=== PATIENT | male | born 2000 | race Caucasian/White ===

== ENCOUNTER 2024-11-20 15:18 | Emergency (ER) | payer OTHER ==
[~2024-11-20] VITALS: Ht 180.3 cm; Wt 66.8 kg
--- NOTE | 2024-11-20 16:22 | DVH ---
CLINICAL INDICATION: crush injury TECHNIQUE: 3 radiographic views of the right 2nd digit were obtained. Comparison: None FINDINGS/IMPRESSION: 0.8 mm bony fragment adjacent to the palmar base of the 2nd digit middle phalanx which may represent a small avulsed bony fragment of unknown chronicity. Recommend correlation with point tenderness. Ot herwise, no evidence for acute traumatic fractures or dislocations. Mild soft tissue edema of the 2nd digit with lucency overlying the nail of the 2nd digit which may be from injury.
--- NOTE | 2024-11-20 17:05 | ED.PDOC ---
History of Present Illness(SKN HPI Comments 24-year-old male complaining of right index finger pain and bleeding. Patient states he was having a toe history of ball when his finger got pinched. Causing bleeding and crushing injury to the tip of the right index finger. Bleeding controlled upon arrival. Nail still. Gil intact on the nail bed. Chief Complaint: Puncture Wound Time Seen by MD: 15:47 History of Present Illness: Nurses Notes Information Source: Patient Mode of Arrival: Ambulatory Past Medical History PAST MEDICAL HISTORY: Denies Surgical History: Denies all surgeries Constitutional: denies: chills, diaphoresis, fatigue, fever, malaise, sweats, weakness, others EENTM: denies: blurred vision, double vision, ear bleeding, ear discharge, ear drainage, ear pain, ear ringing, eye pain, eye redness, hearing loss, mouth pain, mouth swelling, nasal discharge, nose bleeding, nose congestion, nose pain, photophobia, tearing, throat pain, throat swelling, voice changes, others Respiratory: denies: cough, hemoptysis, orthopnea, SOB at rest, shortness of breath, SOB with excertion, stridor, wheezing, others Cardiovascular: denies: chest pain, dizzy spells, diaphoresis, Dyspnea on exertion, edema, irregular heart beat, left arm pain, lightheadedness, palpitations, PND, syncope, others Gastrointestinal: denies: abdomen distended, abdominal pain, blood streaked bowels, constipated, diarrhea, dysphagia, difficulty swallowing, hematemesis, melena, nausea, poor appetite, poor fluid intake, rectal bleeding, rectal pain, vomiting, others Genitourinary: denies: burning, dysuria, flank pain, frequency, hematuria, incontinence, penile discharge, penile sore, pain, testicle pain, testicle swell ing, urgency, others Neurological: denies: dizziness, fainting, headache, left sided numbness, left sided weakness, numbness, paresthesia, pre-existing deficit, right sided numbness, right sided weakness, seizure, speech problems, tingling, tremors, weakness, others Musculoskeletal: denies: back pain, gout, joint pain, joint swelling, muscle pain, muscle stiffness, neck pain, others Integumetry: reports: laceration; denies: bruises, change in color, change in hair/nails, dryness, lesions, lumps, rash, wounds, others Physical Exam General Appearance: No Apparent Distress, Normal HEENT: Normal ENT Inspection, Pharynx Normal, TMs Normal Neck: Full Range of Motion, Non-Tender, Normal, Normal Inspection Respiratory: Chest Non-Tender, Lungs Clear, No Accessory Muscle Use, No Respiratory Distress, Normal Breath Sounds Cardiovascular: No Edema, No JVD, No Murmur, No Gallop, Normal Peripheral Pulses, Regular Rate/Rhythm Breast Exam: Deferred Gastrointestinal: No Organomegaly, Non Tender, No Pulsatile Mass, Normal Bowel Sounds, Soft Genitalia: Deferred Pelvic: Deferred Rectal: Deferred Extremities: No calf tenderness, Normal capillary refill, No pedal edema, Other (Swelling noted on the right index finger pad. Bleeding noted on the side of the nail bed. 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 Was a procedure done?: No Differential Diagnosis (INTG) Differential Diagnosis: Contusion, Other (Nail bed avulsion) X-Ray, Labs, Meds, VS Vital Signs Date Time Temp Pulse Resp B/P (MAP) Pulse Ox O2 Delivery O2 Flow Rate FiO2 11/20/24 15:49 97.8 78 18 150/101 (117) 95 X-Ray, Labs, Meds, VS Comment Nail skills. To be secured to the nail bed, there appears to be small separation at the edge of the nail bed. Nail was cleansed with normal saline. Secured to the nail with Band-Aids. X-ray reveal no obvious acute fracture. Time of 1ST Reevaluation: 17:04 Reevaluation 1ST: Improved Patient Education/Counseling: Diagnosis, Treatment, Need For Follow Up (Finger splint applied to the finger. Patient advised to follow up with PCP in the next 24-48 hours.) Family Education/Counseling: Diagnosis Departure 1 Departure Time of Disposition: 17:04 Impression: Primary Impression: Crushing injury of right index finger Qualified Codes: S67.190A - Crushing injury of right index finger, initial encounter Disposition: HOME / SELF CARE / HOMELESS Condition: Fair Critical Care Note Critical Care Time?: No Stability Stability form required: No Heart Score Heart Score: Heart Score Response (Comments) Value History N/A 0 EKG N/A 0 Age N/A 0 Risk Factors N/A 0 Troponin N/A 0 Total 0 PATIENCE MIRANDA Nov 20, 2024 17:05
[2024-11-20 17:18] VITALS: BP 126/77; PULSE 77; RESP 18; TEMP 98.5; O2SAT 98
== END 2024-11-20 17:23 | disposition home or self-care (01) ==
LOC: ER 15:18
DX: S67.190A Crushing injury of right index finger, initial encounter (principal); X58.XXXA Exposure to other specified factors, initial encounter; Y93.89 Activity, other specified; Y92.89 Other specified places as the place of occurrence of the external cause; Y99.8 Other external cause status
CPT/HCPCS: 29130; 73140